=== PATIENT | female | born 1995 | race Caucasian/White ===

== ENCOUNTER 2025-02-03 17:25 | Emergency (ER) | payer OTHER ==
[~2025-02-03] VITALS: Ht 167.6 cm; Wt 93.1 kg
[2025-02-03 17:48] VITALS: TEMP 97.9
[2025-02-03] MEDS ORDERED: IBUP-1554 PO (21:05)
[2025-02-03] MEDS ORDERED: PENI500T2 PO (21:05)
[2025-02-03] MEDS ORDERED: BACI28.410 TP (21:05)
[2025-02-03] MEDS ORDERED: ACET-66 PO (21:05)
[2025-02-03] MEDS: BACITRACIN 0.9 GM PACKET OINTMENT TP ONE (21:10)
[2025-02-03] MEDS: IBUPROFEN 600 MG TABLET PO ONE (21:10)
[2025-02-03] MEDS: PERTUSS(ACELL),DIPH,TET/PF 0.5 ML SYRINGE [ADULT] IM. ONE (21:11)
[2025-02-03 21:16] VITALS: BP 116/71; PULSE 71; RESP 18; O2SAT 100
== END 2025-02-03 21:17 | disposition home or self-care (01) ==
LOC: EMS 17:29
DX: S50.812A Abrasion of left forearm, initial encounter (principal); F41.9 Anxiety disorder, unspecified; F32.A Depression, unspecified; W55.03XA Scratched by cat, initial encounter; Y93.89 Activity, other specified; Y92.89 Other specified places as the place of occurrence of the external cause; Y99.8 Other external cause status
CPT/HCPCS: 90471; 90715; 99283